=== PATIENT | male | born 1945 | race Caucasian/White ===

== ENCOUNTER 2021-08-09 16:49 | Emergency (ER) | payer MEDICARE, SELFPAY ==
[2021-08-09] VITALS (7 sets, daily range): BP systolic 107–110; BP diastolic 65–73; PULSE 94–99; RESP 16–21; TEMP 36.8; O2SAT 90–99
--- NOTE | ~2021-08-09 | XR_ITS ---
EXAMINATION: XR chest 1V portable Exam Date/Time: 08/09/2021 17:25 CDT CLINICAL HISTORY: Syncope,POOR HISTORIAN Comparison: 01/16/2016. RESULT: Lines, tubes, and devices: None. Lungs and pleura: Clear. Cardiomediastinal silhouette: Stable cardiomediastinal silhouette. Other: No acute osseous or upper abdominal finding. IMPRESSION: No acute cardiopulmonary process Reviewed, dictated and finalized at location K.
--- NOTE | ~2021-08-09 | CT_ITS ---
EXAMINATION: CT cervical spine wo con DATE: 08/09/2021 17:52 INDICATION: Syncope and collapse TECHNIQUE: Computed tomography (CT) of the cervical spine was performed without intravenous contrast. Automated exposure control and iterative reconstruction technique were employed. The dose-length pro duct was 464.75 mGy-cm. COMPARISON: None FINDINGS: Counting reference: Craniocervical junction. There are seven cervical type vertebral bodies. Anatomic Variants: None. Vertebral Body Alignment: Trace anterolisthesis of C3 on C4, likely on a degenerative basis. Craniocervical junction: Severe degenerative change. Alignment intact. Osseous structures/fracture: No evidence of a lytic or blastic process in the visualized spine. N o evidence of acute fracture. C4-C6 ACDF without complication. Cervical soft tissues: The paraspinal soft tissues planes are maintained. Senescent changes in the lungs. 12 mm hypodense right thyroid lesion, requires no additional follow-up. Bilateral carotid bif urcation calcifications. Degenerative changes: Multilevel severe degenerative disc disease and facet arthropathy. Multilevel s evere bilateral neural foraminal narrowing. Multilevel severe central canal stenosis in the lower cer vical spine. IMPRESSION: No acute fracture or traumatic malalignment in the cervical spine. Reviewed, dictated and finalized at location K.
--- NOTE | ~2021-08-09 | CT_ITS ---
EXAMINATION: CT brain wo con DATE: 08/09/2021 17:52 INDICATION: Syncope and collapse TECHNIQUE: Computed tomography (CT) of the head was performed without intravenous contrast. The mA wa s adjusted according to patient size. Iterative reconstruction technique was employed. The dose-lengt h product was 605.33 mGy-cm. COMPARISON: None FINDINGS: Hyperdensity insinuating into multiple right inferior temporal sulci, likely representing small volum e subarachnoid hemorrhage. No hydrocephalus, mass, or herniation. No acute ischemic infarct. Unremarkable dural venous sinus attenuation. No acute osseous abnormality. The aerated spaces are clear. Mild atrophy and moderate chronic white matter change. Bilateral lens replacements. Atherosclerotic i ntracranial calcifications. IMPRESSION: Small volume right inferior temporal subarachnoid hemorrhage. Results communicated to Dr. Hu by Dr. Baker telephonically at 6:01 PM on 08/09/2021. Reviewed, dictated and finalized at location K. IMPRESSION: Small volume right inferior temporal subarachnoid hemorrhage. Results communicated to Dr. Hu by Dr. Baker telephonically at 6:01 PM on 08/09.
--- NOTE | 2021-08-09 17:02 | ECG_ITS ---
Measurements Intervals [place] Rate: 95 P: 90 CT: 156 QRS: 71 QRSD: 108 T: 7 QT: 355 QTc: 446 Interpretive Statements SINUS RHYTHM BORDERLINE ST-T WAVE ABNORMALITY- INFERIOR LEADS BASELINE ARTIFACT- I, II BORDERLINE ECG Electronically Signed On 08-09-2021 20:13:37 CDT by Darian Hunter D.O.
--- NOTE | 2021-08-09 17:09 | PC.NURSE ---
Attempted to call patient's , Magaly.
--- NOTE | 2021-08-09 17:16 | ED.SYNCOPE ---
HPI - Syncope General Chief Complaint: Syncope Stated Complaint: syncope with HI Time Seen by Provider: 08/09/21 17:03 Source: patient, EMS and RN notes reviewed Mode of arrival: EMS Limitations: no limitations History of Present Illness HPI narrative: Patient is 76 years old white male drove himself to [place] and work-up in the ambulance with c-collar on. Patient does not know what happened, he denies any fever, chills, nausea, vomiting, chest pain, shortness of breath, lightheadedness, headache or any other symptoms. No significant other at the bedside at this time. Patient is awake, alert and oriented x4, does not like the c-collar and would like to remove it Related Data Allergies Allergy/AdvReac Type Severity Reaction Status Date / Time No Known Allergies Allergy Unknown Unverified 01/16/16 19:03 Review of Systems Review of Systems: CONSTITUTIONAL: Denies fever, chills, or sweats. EYES: Denies visual changes, redness, or discharge. ENT: Denies rhinorrhea, congestion, sore throat, or otalgia. CARDIOVASCULAR: Denies chest pain, palpitations, or edema. RESPIRATORY: Denies cough or dyspnea. GASTROINTESTINAL: Denies abdominal pain, nausea, vomiting, or diarrhea. GENITOURINARY: Denies dysuria or hematuria. SKIN: Denies rash or itching. MUSCULOSKELETAL: Denies back pain, joint pain, or myalgia. NEUROLOGIC: Denies headache, numbness, or weakness. PSYCHIATRIC: Denies anxiety or depression. Exam Narrative: General appearance: Well-developed, well-nourished Skin: Normal color, diaphoretic Head: Normocephalic, frontal bruises Eyes: Clear conjunctiva ENT: Oropharynx normal, ears normal, nose normal Neck: C-collar on Chest and respiratory: Airway patent, no respiratory distress, no accessory muscle use Heart: Regular rate/rhythm Abdomen: Soft, nontender, no organomegaly, quiet bowel sounds Vascular: Normal peripheral pulses, normal capillary refill. Musculoskeletal: Normal range of motion, nontender back Neurologic: Alert and oriented ?3, TELECOMMUNICATOR is normal as tested, no gross motor deficit Course Course Emergency Course: Patient had a syncope, subsequently hit the head on the ground, CAT scan showed subarachnoid hemorrhage which is high likely traumatic. Considered symptoms University was accepted by Dr. Driscoll. Patient is hemodynamically stable, awake, alert and oriented x4 Consultations Consultation #1: Dr. Driscoll ED [facility] Date: 08/09/21 Time: 18:31 Vital Signs Vital signs: Vital Signs Temperature 36.8 C 08/09/21 16:51 Pulse Rate 98 08/09/21 16:51 Respiratory Rate 16 08/09/21 16:51 Blood Pressure 110/73 08/09/21 16:51 Pulse Oximetry 99 08/09/21 16:51 Temperature 36.8 C 08/09/21 16:51 Pulse Rate 98 08/09/21 16:51 Respiratory Rate 16 08/09/21 16:51 Blood Pressure 110/73 08/09/21 16:51 Pulse Oximetry 99 08/09/21 16:51 MDM - Syncope Imaging Data Radiologist's impression: Impressions Chest X-Ray 08/09/21 17:42 IMPRESSION: No acute cardiopulmonary process Head CT 08/09/21 17:59 IMPRESSION: Small volume right inferior temporal subarachnoid hemorrhage. Results communicated to Dr. Hu by Dr. Baker telephonically at 6:01 PM on 08/09/2021. Cervical Spine CT 08/09/21 18:06 IMPRESSION: No acute fracture or traumatic malalignment in the cervical spine. ECG Data EKG #1: Attestation: I personally reviewed and interpreted this ECG as follows: ECG completion date: 08/09/21 ECG completion time: 18:34 Interpretation: Normal sinus rhythm at 95 bpm, normal EKG Critical Care Time Critical Care Time Critical Care Time: Yes
[2021-08-09 17:18] LABS: Glucose Point of Care 137 mg/dl (65-105)
[2021-08-09 17:23] LABS: Basophils Percent Auto 0.3 % (0.2-1.2); Eosinophils Absolute Auto 0.1 K/mm3 (0-0.3); Eosinophils Percent Auto 1.2 % (0-4.4); Hematocrit 40.5 % (42.0-52.0); Immature Granulocyte Absolute 0.04 K/mm3 (0.00-0.031); Immature Granulocyte Percent A 0.5 % (0-0.5); Immature Platelet Fraction Pct 3.7 % (0.9-11.2); Lymphocytes Absolute Auto 2.03 K/mm3 (0.9-3.2); Lymphocytes Percent Auto 26.6 % (18.3-44.2); Mean Corpuscular HGB Conc 32.1 g/dl (32-36); Mean Corpuscular Hemoglobin 28.3 pg (26-34); Mean Corpuscular Volume 88.2 fl (80-100); Mean Platelet Volume 10.4 fl (7.4-10.4); Monocytes Absolute Auto 0.8 K/mm3 (0.1-0.6); Neutrophils Absolute Auto 4.7 K/mm3 (1.3-6.7); Neutrophils Percent Auto 61.4 % (45.5-73.1); Platelet Count Result 142 k/mm3 (150-375); Red Blood Count 4.59 M/mm3 (4.6-6.20); Red Cell Distribution Width 13.4 % (11.5-14.5); White Blood Count 7.6 K/mm3 (4.5-10.0)
[2021-08-09 17:38] LABS: Alveolar/Arterial O2 Gradient 43.3 mmHg; Base Excess ABG -6.4 mEq/l (+/-2.0); Fractional Inspired Oxygen 21 %; HCO3 ABG 18.6 mEq/l (22.0-26.0); Oxygen Content ABG 16.9 %vol (16.0-22.0); Oxygen Saturation ABG 91.2 % (95.0-100.0); PCO2 ABG 35.8 mmHg (35.0-45.0); PO2 ABG 63.6 mmHg (80.0-100.0); PO2 FiO2 Ratio Arterial Blood 3.03 %; Total Hemoglobin 13.9 g/dL (12.0-18.0); pH ABG 7.334 (7.350-7.450)
[2021-08-09 17:39] LABS: Device ROOM AIR; Modified Allen's Test Pass; Oxyhemoglobin 86.3 % THb (90.0-100.0); Site Drawn RIGHT RADIAL
[2021-08-09 17:43] LABS: Alanine Aminotransferase 61 U/L (6-50); Albumin Level 3.6 g/dL (3.5-5.1); Alkaline Phosphatase 58 U/L (38-126); Anion Gap 8 mmol/L (8-16); Aspartate Amino Transferase 54 U/L (17-59); Bilirubin,Total 0.9 mg/dL (0.2-1.3); Blood Urea Nitrogen 24 mg/dL (9-20); Calcium 8.3 mg/dL (8.4-10.2); Carbon Dioxide 21 mmol/L (22-30); Chloride 108 mmol/L (98-107); Estimated CRCL calculation 44 ml/min; Estimated Glomerular Filt Rate 50; Glucose 144 mg/dL (65-110); Potassium 4.1 mmol/L (3.4-5.0); Sodium 137 mmol/L (137-145)
--- NOTE | 2021-08-09 18:01 | PC.NURSE ---
Per MARTITA Hu, no urine specimen needed.
[2021-08-09 18:05] LABS: INR 1.2; Prothrombin Time 14.8 Seconds (11.1-14.7)
[2021-08-09 18:06] LABS: Partial Thromboplastin Time 29.1 SECONDS (22.3-36.8)
[2021-08-09] MEDS: SODIUM CHLORIDE 0.9% IV 1,000 ML 999 ML IV CONT (18:09)
--- NOTE | 2021-08-09 18:12 | PC.NURSE ---
Spoke to patient's Magaly
[2021-08-09 18:22] LABS: D Dimer 2.81 ug/mL (<0.48)
[2021-08-09 18:34] LABS: NT Pro B Type Natriuretic Pept 127 pg/mL (5-100)
[2021-08-09 18:41] LABS: Troponin I < 0.012 ng/mL (0.000-0.034)
== END 2021-08-09 18:53 | disposition short-term general hospital (02) ==
PROVIDERS: Emergency Provider Emergency Medicine
DX: S06.6X9A Traumatic subarachnoid hemorrhage with loss of consciousness of unspecified duration, initial encounter (principal); R55 Syncope and collapse; N28.9 Disorder of kidney and ureter, unspecified; R79.1 Abnormal coagulation profile; W18.39XA Other fall on same level, initial encounter; R94.31 Abnormal electrocardiogram [ECG] [EKG]
CPT/HCPCS: 36415; 36600; 70450; 71045; 72125; 80053; 82805; 82948; 83880; 84484; 85025; 85055; 85380; 85610; 85730; 93005; 96360; 99285; J7030